=== PATIENT | male | born 1960 | race Caucasian/White ===

== ENCOUNTER 2023-02-19 17:28 | Emergency (ER) | payer BC ==
[~2023-02-19] VITALS: Ht 182.9 cm; Wt 90.9 kg
[~2023-02-19 17:28] MED LIST: PANT40TA39 PO
[2023-02-19 17:57] VITALS: BP 109/60; PULSE 65; O2SAT 97
--- NOTE | 2023-02-19 18:04 | NUR ---
DR DINERO WANTS TO BE CALLED WHEN PT GOES INTO A ROOM, PER PT
[2023-02-19 19:40] LABS: BASOPHILS # (AUTO) 0.1 X10'3 (0-0.2); BASOPHILS % (AUTO) 0.5 % (0-1); EOSINOPHILS % (AUTO) 0 % (0-6); HEMATOCRIT 39.6 % (42.0-52.0); HEMOGLOBIN 13.5 g/dl (14.0-17.9); LYMPHOCYTES # (AUTO) 0.6 X10'3 (1.1-4.8); LYMPHOCYTES % (AUTO) 3.7 % (21-51); MEAN CORPUSCULAR HEMOGLOBIN 33.3 PG (27.0-31.0); MEAN CORPUSCULAR HGB CONC 34.2 g/dL (33.0-36.5); MEAN CORPUSCULAR VOLUME 97.3 FL (78-98); MEAN PLATELET VOLUME 7.9 FL (7.4-10.4); MONOCYTES # (AUTO) 1.7 X10'3 (0-0.9); MONOCYTES % (AUTO) 10.6 % (2-12); NEUTROPHILS # (AUTO) 13.4 X10'3 (1.8-7.7); NEUTROPHILS % (AUTO) 85.2 % (42-75); PLATELET COUNT 291 X10'3 (140-440); RED BLOOD COUNT 4.07 X10'6 (4.70-6.10); RED CELL DISTRIBUTION WIDTH 13.3 % (11.5-14.5); WHITE BLOOD COUNT 15.8 X10'3 (4.5-11.0)
[2023-02-19 19:54] LABS: ALANINE AMINOTRANSFERASE 37 U/L (12-78); ALBUMIN 3.4 G/DL (3.4-5.0); ALBUMIN/GLOBULIN RATIO 0.9 (1.1-1.5); ALKALINE PHOSPHATASE 82 IU/L (46-116); ANION GAP 9 (8-16); ASPARTATE AMINO TRANSFERASE 28 U/L (10-37); BILIRUBIN,TOTAL 0.7 MG/DL (0.1-1.0); BLOOD UREA NITROGEN 21 MG/DL (7-18); BUN/CREATININE RATIO 22.6 (10.0-20.0); CALCIUM 8.8 MG/DL (8.5-10.1); CHLORIDE 94 MMOL/L (99-107); CREATININE 0.93 MG/DL (0.60-1.10); GLUCOSE 120 MG/DL (70-104); LIPASE < 50 U/L (73-393); POTASSIUM 3.7 MMOL/L (3.5-5.1); SODIUM 127 MMOL/L (135-145); TOTAL CARBON DIOXIDE 24.4 MMOL/L (24-32); eGFR 83 ML/MIN
[2023-02-19 20:04] VITALS: RESP 18
[2023-02-19] MEDS ORDERED: dexamethasone 4mg/ml inj IV ONE (20:10)
[2023-02-19] MEDS ORDERED: proCHLORperazine 10 MG/2 ml inj IV ONE (20:10)
[2023-02-19] MEDS ORDERED: normal saline 1000ml 1,000 ML IV ONE ×2 (20:10)
[2023-02-19] MEDS ORDERED: iohexol 300mg/ml 100ml inj. ONE (20:28)
[2023-02-19] MEDS ORDERED: metoclopramide 5 mg/ml inj IV ONE (21:50)
[2023-02-19] MEDS ORDERED: METO5TAB85 PO (22:41)
[2023-02-19] MEDS ORDERED: PROC-8 PO (22:41)
== END 2023-02-19 22:54 | disposition home or self-care (01) ==
LOC: ER 17:29
DX: R11.2 Nausea with vomiting, unspecified (principal); E73.9 Lactose intolerance, unspecified; Z79.899 Other long term (current) drug therapy; Z87.19 Personal history of other diseases of the digestive system; Z98.890 Other specified postprocedural states
CPT/HCPCS: 36415; 74177; 80053; 83690; 84145; 85025; 96361; 96374; 96375; 99285; J0780; J1100; J2765; J3490; J7030; Q9967

== ENCOUNTER 2024-10-09 09:51 | Emergency (ER) | payer BC ==
[~2024-10-09] VITALS: Ht 180.3 cm; Wt 74.7 kg
[~2024-10-09 09:51] MED LIST changes: +METO5TAB85 PO; +PROC-8 PO
[2024-10-09 09:56] VITALS: BP 148/92; PULSE 98; RESP 15; TEMP 98.8; O2SAT 96
[2024-10-09] MEDS ORDERED: SULF1TAB45 PO (10:30)
[2024-10-09] MEDS ORDERED: CEPH-585 PO (10:30)
== END 2024-10-09 10:51 | disposition home or self-care (01) ==
LOC: ER 09:52
DX: L03.115 Cellulitis of right lower limb (principal); Z88.8 Allergy status to other drugs, medicaments and biological substances; Z79.899 Other long term (current) drug therapy; Z98.890 Other specified postprocedural states; W57.XXXA Bitten or stung by nonvenomous insect and other nonvenomous arthropods, initial encounter; Y93.01 Activity, walking, marching and hiking; Y92.89 Other specified places as the place of occurrence of the external cause; Y99.8 Other external cause status
CPT/HCPCS: 99283

== ENCOUNTER 2024-10-14 06:46 | Emergency (ER) | payer BC ==
[~2024-10-14] VITALS: Ht 182.9 cm; Wt 95.5 kg
[~2024-10-14 06:46] MED LIST changes: +CEPH-585 PO; +SULF1TAB45 PO
[2024-10-14 06:48] VITALS: BP 139/91; PULSE 94; RESP 18; TEMP 97.7; O2SAT 97
[2024-10-14] MEDS: TETanus/Pertussis (Acell)/Diphther VAC/PF (Tdap-Adult) 0.5ml syringe IMVAC ONE (08:00)
== END 2024-10-14 08:06 | disposition home or self-care (01) ==
LOC: ER 06:47
DX: S80.861A Insect bite (nonvenomous), right lower leg, initial encounter (principal); Z88.1 Allergy status to other antibiotic agents; Z88.2 Allergy status to sulfonamides; Z88.8 Allergy status to other drugs, medicaments and biological substances; Z79.899 Other long term (current) drug therapy; Z98.890 Other specified postprocedural states; W57.XXXA Bitten or stung by nonvenomous insect and other nonvenomous arthropods, initial encounter; Y93.89 Activity, other specified; Y92.89 Other specified places as the place of occurrence of the external cause; Y99.8 Other external cause status
CPT/HCPCS: 90471; 90715; 99283

== ENCOUNTER 2024-12-03 17:07 | Emergency (ER) | payer BC ==
[~2024-12-03] VITALS: Ht 182.9 cm; Wt 94.2 kg
[~2024-12-03 17:07] MED LIST changes: -SULF1TAB45 PO
[2024-12-03 17:23] VITALS: BP 133/83; PULSE 82; RESP 18; TEMP 97.6; O2SAT 98
[2024-12-03] MEDS ORDERED: CEPH-585 PO (18:16)
--- NOTE | 2024-12-03 18:17 | Physician Documentation ---
History of Present Illness ~ Chief Complaint: Bite-insect Stated Complaint: TICK BITE Time Seen by MD: 18:12 OK to notify your PCP?: Yes Primary Medical Doctor: none Source: patient Mode of Arrival: POV Exam Limitations: no limitations HPI Richy is a 64-year-old male with complaints of a tick bite to his right lower leg that he noticed yesterday. He was able to remove the tick including the head but today noticed he had a blister there. He popped the blister this morning and continued wearing his hiking boots which he were all day today and when he removed them this evening noticed the site of the tick bite looked infected. No medications taken for his symptoms prior to arrival. He denies any fevers. Tetanus within 5 years?: No Medication Reconciliation Allergies: Coded Allergies: Sulfa (Sulfonamide Antibiotics) (Unverified Allergy, Severe, RASH, GI UPSET, 12/03/24) levofloxacin (Unverified Allergy, Severe, TENDON PAIN, 12/03/24) tetracycline (Unverified Allergy, Intermediate, GI UPSET, 12/03/24) ondansetron (Unverified Adverse Reaction, Unknown, "caused vomiting", 12/03/24) Uncoded Allergies: lactose intolerant (Adverse Reaction, Unknown, 03/14/13) Scheduled Cephalexin*Monohydrate* (Keflex*), 1 CAP PO QID Cephalexin*Monohydrate* (Keflex*), 1 CAP PO Q8H Metoclopramide HCl (Reglan), 1 TAB PO Q8H Pantoprazole Sodium* (Protonix*), 40 MG PO DAILY Prochlorperazine Maleate (Compazine), 1 TAB PO Q6H Past Medical History Past Medical History: GI Bleed, Hemorrhoids Past Surgical History: orthopedic surgeries, other Review of Systems All Other Systems at this time: Reviewed and Negative Physical Exam Vital Signs: RN Vital Signs have been reviewed: Yes, Temperature: 97.6, Source: Temporal, Heart Rate: 82, Respiratory Rate: 18, BP: 133/83, Pulse Oximetry: 98, Weight: 94.250 Pulse Oximetry Reflects: adequate oxygenation Physical Exam General: Alert, no apparent distress. HEENT: PERRL, EOMI, no injection, moist mucous membranes. Neck: Full range of motion. Respiratory: Lungs clear, no respiratory distress. Chest: No accessory muscle use. Cardiovascular: Regular rate and rhythm, no murmurs. Gastrointestinal: Soft, nontender, nondistended. Bowels sounds present. Extremities: Normal range of motion, no deformity. Neurologic: Oriented x4. Psychiatric: Normal mood and affect. Skin: Normal color, warm and dry. Edema and erythema to right posterior ankle near the Achilles tendon. There is some purulent drainage from the site. Progress Results/Orders Reviewed/noted all lab results: Yes Results/Orders Completed Orders - ALICIA SWIFT Cephalexin Capsule (Keflex Capsule) (12/03/24 18:20) Vital Signs 12/03/24 17:23 Temp 97.6 Pulse 82 Resp 18 B/P (MAP) 133/83 Pulse Ox 98 Medical Decision Making Findings Richy is a 64-year-old male with what appears to be an infected tick bite. There does not appear to be any foreign body in the wound. There is some drainage from the site on his right lower leg near his Achilles tendon but he has good range of motion in that foot and ankle. I have given a first-time dose of Keflex and prescribed Keflex for home as well. He should do warm compresses at home to help it drain. He can use Tylenol and ibuprofen for the pain and keep wound clean and dry. He should return back here for any new or worsening symptoms and follow up with his primary care provider in the next 3 days. Differential Dx:Considerations: Include: Abrasion, Allergic reaction, Insect envenomation, Neurovascular injury, Retained foreign body Departure Disposition: 01 HOME / SELF CARE / HOMELESS Impression: Primary Impression: Insect bites Additional Impression: Cellulitis Condition: Stable Discharge Instructions: Insect Bite, Adult, [id number] Additional Instructions: Please take all antibiotics as prescribed. Follow up with her primary care provider in the next 3 days. Return back here for any new or worsening symptoms. Referrals: NO PRIMARY CARE PROVIDER (PCP) Prescriptions Cephalexin*Monohydrate* (Keflex*) 500 Mg Capsule 1 CAP PO Q8H for 10 Days, #30 CAP Prov: ALICIA SWIFT 12/03/24 Education Educated: Patient Educated regarding: diagnosis, treatment, prognosis, need for follow up Signature Scribe Signature: . Attestation: Scribed for Alicia Swift by Alicia Chirinos NP . 12/04/24 00:15 ALICIA SWIFT [facility] December 03, 2024 18:17
[2024-12-03] MEDS ORDERED: cephalexin 250mg capsule PO ONE (18:20)
== END 2024-12-03 18:25 | disposition home or self-care (01) ==
LOC: ER 17:07
DX: S81.851A Open bite, right lower leg, initial encounter (principal); L03.115 Cellulitis of right lower limb; Z88.1 Allergy status to other antibiotic agents; Z88.2 Allergy status to sulfonamides; Z88.8 Allergy status to other drugs, medicaments and biological substances; Z79.899 Other long term (current) drug therapy; W57.XXXA Bitten or stung by nonvenomous insect and other nonvenomous arthropods, initial encounter; Y93.89 Activity, other specified; Y92.89 Other specified places as the place of occurrence of the external cause; Y99.8 Other external cause status
CPT/HCPCS: 99283